=== PATIENT | female | born 1975 | race Two or more races ===

== ENCOUNTER → 2024-09-11 | Outpatient (CLI) | payer MEDICAID, SELFPAY ==
--- NOTE | 2024-09-11 11:00 | XR_ITS ---
Examination: Breast ultrasound complete, bilateral Date and time of exam: September 11, 2024 1131 hours INDICATIONS: History left breast biopsy markers 16/01/2021, negative for carcinoma, left breast tenderness several months Technique: Real-time grayscale ultrasonographic imaging bilateral breasts, including all 4 quadrants as well as nipple retroareolar and axillary regions. Findings: Sonographic images right breast 11:00 nodule lobular margins 9 x 5 x 8 mm Sonographic images left breast 2:00 oval mass lobular margins breast biopsy marker 11 x 15 mm 4:00 cyst 6 x 5 mm IMPRESSION: BI-RADS Category 3: Probably benign findings One additional bilateral 6 month breast sonography follow-up is needed to document stability of nodules described above
== END | disposition home or self-care (01) ==
PROVIDERS: PCP Physician Assistant; Referring Provider Physician Assistant; Visit Provider Physician Assistant
DX: N63.21 Unspecified lump in the left breast, upper outer quadrant (principal); N63.11 Unspecified lump in the right breast, upper outer quadrant
CPT/HCPCS: 76641

== ENCOUNTER → 2025-03-12 | Outpatient (CLI) | payer MEDICAID, SELFPAY ==
--- NOTE | 2025-03-12 11:00 | XR_ITS ---
Examination: Breast ultrasound complete, bilateral Date and time of exam: March 12, 2025 1118 hours INDICATIONS: 11:00 nodule right breast 9 mm 2:00 nodule left breast 15 mm on sonogram September 11, 2024 Technique: Real-time grayscale ultrasonographic imaging bilateral breasts, including all 4 quadrants as well as nipple retroareolar and axillary regions. Findings: Sonographic images right breast 11:00 nodule lobular margins 9 x 8 mm Sonographic images left breast 2:00 nodule 12 x 12 mm IMPRESSION: BI-RADS Category 3: Probably benign findings Recommend continued 6 month follow-up bilateral breast sonography to document stability of breast nodules described above
== END | disposition home or self-care (01) ==
LOC: CDIM 11:05
PROVIDERS: PCP Physician Assistant; Referring Provider Physician Assistant; Visit Provider Physician Assistant
DX: R92.8 Other abnormal and inconclusive findings on diagnostic imaging of breast (principal); N63.21 Unspecified lump in the left breast, upper outer quadrant; N63.11 Unspecified lump in the right breast, upper outer quadrant
CPT/HCPCS: 76641